=== PATIENT | female | born 1965 | race Caucasian/White ===

== ENCOUNTER 2017-06-09 08:58 | Emergency (ER) | payer OTHER ==
[2017-06-09] MEDS: DIAZEPAM 5 MG TAB PO (10:38)
[2017-06-09] MEDS: KETOROLAC 30 MG INJ IM (10:39)
== END 2017-06-09 11:48 | disposition home or self-care (01) ==
LOC: FTE 08:58
DX: M54.5 Low back pain (principal)
CPT/HCPCS: 96372; 99284-25

== ENCOUNTER 2017-11-13 16:28 | Emergency (ER) | payer OTHER ==
[2017-11-13] MEDS: IBUPROFEN 600 MG TAB PO (18:43)
[2017-11-13] MEDS: HYDROCODONE/APAP (5/325) TAB PO (18:43)
== END 2017-11-13 20:20 | disposition home or self-care (01) ==
LOC: FTE 16:28
DX: S80.212A Abrasion, left knee, initial encounter (principal); S90.811A Abrasion, right foot, initial encounter; I10 Essential (primary) hypertension; W17.89XA Other fall from one level to another, initial encounter; Y92.9 Unspecified place or not applicable
CPT/HCPCS: 72100; 73562; 73630; 99284-25

== ENCOUNTER 2018-03-15 11:01 | Emergency (ER) | payer OTHER | END 2018-03-15 12:50 | disposition home or self-care (01) | LOC: E/R 11:01 | DX: L30.9 Dermatitis, unspecified (principal); L01.00 Impetigo, unspecified; I10 Essential (primary) hypertension | CPT/HCPCS: 99283; Z7502 ==

== ENCOUNTER 2018-03-25 09:41 | Emergency (ER) | payer OTHER ==
[2018-03-25 11:41] LABS: OCCULT BLOOD STOOL NEGATIVE (NEGATIVE)
[2018-03-25 11:42] LABS: ADD MAN DIFF? NO
[2018-03-25 11:45] LABS: WHITE BLOOD COUNT 11.1 10^3/ul (4.8-10.8)
[2018-03-25 11:45] LABS: BASOPHIL # 0.1 10^3/ul (0.0-0.1); BASOPHILS % 0.6 % (0.0-2.0); EOSINOPHILS # 0.2 10^3/ul (0.0-0.5); EOSINOPHILS % 1.7 % (0.0-7.0); HEMOGLOBIN 13.7 g/dl (12.0-16.0); LYMPHOCYTES # 2.1 10^3/ul (0.8-2.9); LYMPHOCYTES % 18.9 % (15.0-51.0); MEAN CORPUSCULAR HEMOGLOBIN 28.8 pg (29.0-33.0); MEAN CORPUSCULAR HGB CONC 32.6 g/dl (32.0-37.0); MEAN CORPUSCULAR VOLUME 88.4 fl (82.0-101.0); MEAN PLATELET VOLUME 10.7 fl (7.4-10.4); MONOCYTES % 8.7 % (0.0-11.0); NEUTROPHIL # 7.7 10^3/ul (1.6-7.5); NEUTROPHILS % 69.6 % (39.0-77.0); PLATELET COUNT 329 10^3/UL (140-415); RED BLOOD COUNT 4.75 10^6/ul (4.20-5.40); RED CELL DISTRIBUTION WIDTH 13.4 % (11.5-14.5)
[2018-03-25 12:04] LABS: INR 0.97
[2018-03-25 12:05] LABS: PARTIAL THROMBOPLASTIN TIME 28.9 Sec (23.0-35.0)
[2018-03-25 12:08] LABS: ALANINE AMINOTRANSFERASE 25 IU/L (13-69); ALBUMIN 4.3 g/dl (3.3-4.9); ALBUMIN/GLOBULIN RATIO 1.22; ALKALINE PHOSPHATASE 94 IU/L (42-121); ANION GAP 8 (5-13); ASPARTATE AMINO TRANSFERASE 27 IU/L (15-46); BILIRUBIN,INDIRECT 0.4 mg/dl (0-1.1); BILIRUBIN,TOTAL 0.4 mg/dl (0.2-1.3); BLOOD UREA NITROGEN 14 mg/dl (7-20); CALCIUM 9.7 mg/dl (8.4-10.2); CARBON DIOXIDE 28 mmol/L (21-31); CHLORIDE 105 mmol/L (97-110); CREATININE 0.59 mg/dl (0.44-1.00); Estimated GFR > 60 mL/min (>60); GLUCOSE 89 mg/dl (70-220); LIPASE 282 U/L (23-300); POTASSIUM 3.9 mmol/L (3.5-5.1); SODIUM 141 mmol/L (135-144); TOTAL PROTEIN 7.8 g/dl (6.1-8.1)
[2018-03-25 12:38] LABS: ADD UMIC NO; UR ASCORBIC ACID NEGATIVE (NEGATIVE); UR BILIRUBIN (Dip) NEGATIVE (NEGATIVE); UR BLOOD (Dip) NEGATIVE (NEGATIVE); UR CLARITY CLEAR (CLEAR); UR COLOR YELLOW (YELLOW); UR GLUCOSE (Dip) NEGATIVE (NEGATIVE); UR KETONES (Dip) NEGATIVE (NEGATIVE); UR LEUKOCYTE ESTERASE (Dip) NEGATIVE Leu/ul (NEGATIVE); UR NITRITE (Dip) NEGATIVE (NEGATIVE); UR SPECIFIC GRAVITY (Dip) 1.025 (1.003-1.030); UR TOTAL PROTEIN (Dip) NEGATIVE (NEGATIVE); UR UROBILINOGEN (Dip) NEGATIVE (NEGATIVE)
== END 2018-03-25 13:57 | disposition home or self-care (01) ==
LOC: FTE 13:57
DX: R21 Rash and other nonspecific skin eruption (principal); R19.5 Other fecal abnormalities; I10 Essential (primary) hypertension
CPT/HCPCS: 80053; 81003; 82270; 83690; 85025; 85610; 85730; 99283-25

== ENCOUNTER 2018-04-27 16:26 | Emergency (ER) | payer SELFPAY, OTHER | END 2018-04-27 18:55 | disposition left against medical advice (07) | LOC: FTE 16:26 | DX: Z53.21 Procedure and treatment not carried out due to patient leaving prior to being seen by health care provider (principal) ==

== ENCOUNTER 2018-06-26 09:09 | Emergency (ER) | payer OTHER | END 2018-06-26 11:39 | disposition home or self-care (01) | LOC: FTE 09:09 | DX: M25.562 Pain in left knee (principal); M10.9 Gout, unspecified; I10 Essential (primary) hypertension | CPT/HCPCS: 99283; Z7502 ==

== ENCOUNTER 2018-07-17 21:16 | Emergency (ER) | payer SELFPAY, OTHER | END 2018-07-18 01:00 | disposition left against medical advice (07) | LOC: FTE 21:16 | DX: Z53.21 Procedure and treatment not carried out due to patient leaving prior to being seen by health care provider (principal) ==

== ENCOUNTER 2018-09-05 09:21 | Emergency (ER) | payer OTHER ==
[2018-09-05] MEDS: DIAZEPAM 5 MG TAB PO (10:09)
[2018-09-05] MEDS: KETOROLAC 60 MG INJ IM (10:16)
[2018-09-05] MEDS: DEXAMETHASONE 10 MG/ML 1 ML INJ IM (10:16)
== END 2018-09-05 10:36 | disposition home or self-care (01) ==
LOC: FTE 10:36
DX: M54.5 Low back pain (principal); I10 Essential (primary) hypertension
CPT/HCPCS: 81025; 96372; 99284-25

== ENCOUNTER 2018-10-30 01:48 | Emergency (ER) | payer OTHER ==
[2018-10-30 02:37] LABS: ADD MAN DIFF? NO
[2018-10-30 02:39] LABS: WHITE BLOOD COUNT 8.5 10^3/ul (4.8-10.8)
[2018-10-30 02:39] LABS: BASOPHIL # 0.1 10^3/ul (0.0-0.1); BASOPHILS % 0.9 % (0.0-2.0); EOSINOPHILS # 0.2 10^3/ul (0.0-0.5); EOSINOPHILS % 2.6 % (0.0-7.0); HEMATOCRIT 37.6 % (37.0-47.0); HEMOGLOBIN 12.4 g/dl (12.0-16.0); LYMPHOCYTES # 2.7 10^3/ul (0.8-2.9); LYMPHOCYTES % 31.8 % (15.0-51.0); MEAN CORPUSCULAR HEMOGLOBIN 28.9 pg (29.0-33.0); MEAN CORPUSCULAR VOLUME 87.6 fl (82.0-101.0); MEAN PLATELET VOLUME 11.1 fl (7.4-10.4); MONOCYTE # 0.8 10^3/ul (0.3-0.9); MONOCYTES % 9.5 % (0.0-11.0); NEUTROPHIL # 4.7 10^3/ul (1.6-7.5); PLATELET COUNT 262 10^3/UL (140-415); RED BLOOD COUNT 4.29 10^6/ul (4.20-5.40); RED CELL DISTRIBUTION WIDTH 13.3 % (11.5-14.5)
[2018-10-30 02:56] LABS: ALANINE AMINOTRANSFERASE 38 IU/L (13-69); ALBUMIN 4.3 g/dl (3.3-4.9); ALBUMIN/GLOBULIN RATIO 1.34; ALKALINE PHOSPHATASE 69 IU/L (42-121); ANION GAP 10 (5-13); ASPARTATE AMINO TRANSFERASE 31 IU/L (15-46); BILIRUBIN,INDIRECT 0.6 mg/dl (0-1.1); BILIRUBIN,TOTAL 0.6 mg/dl (0.2-1.3); BLOOD UREA NITROGEN 15 mg/dl (7-20); CALCIUM 9.5 mg/dl (8.4-10.2); CARBON DIOXIDE 27 mmol/L (21-31); CHLORIDE 108 mmol/L (97-110); CREATININE 0.84 mg/dl (0.44-1.00); Estimated GFR > 60 mL/min (>60); GLUCOSE 98 mg/dl (70-220); POTASSIUM 3.5 mmol/L (3.5-5.1); SODIUM 145 mmol/L (135-144); TOTAL PROTEIN 7.5 g/dl (6.1-8.1)
[2018-10-30 02:59] LABS: INR 1.04; PROTIME 13.7 Sec (11.9-14.9); PT RATIO 1.1
[2018-10-30] MEDS: ONDANSETRON 4 MG INJ IV (03:30)
[2018-10-30] MEDS: morphine 4 MG/ML VIAL IV (03:30)
[2018-10-30] MEDS: ACETAMINOPHEN 500 MG TAB PO (05:44)
== END 2018-10-30 09:39 | disposition home or self-care (01) ==
LOC: E/R 01:48
DX: M54.2 Cervicalgia (principal); I10 Essential (primary) hypertension; M54.5 Low back pain; Z85.42 Personal history of malignant neoplasm of other parts of uterus
CPT/HCPCS: 36415; 72142; 72147; 72149; 80053; 85025; 85610; 93005; 96374; 96375; 99285-25

== ENCOUNTER 2018-12-20 01:36 | Emergency (ER) | payer OTHER ==
[2018-12-20] MEDS: KETOROLAC 15 MG INJ IV (03:04)
[2018-12-20] MEDS: ONDANSETRON 4 MG INJ IV (03:04)
[2018-12-20] MEDS: SOD CHLORIDE 0.9% 1,000 ML IV (03:04)
[2018-12-20 03:19] LABS: ADD MAN DIFF? NO
[2018-12-20 03:35] LABS: WHITE BLOOD COUNT 7.8 10^3/ul (4.8-10.8)
[2018-12-20 03:35] LABS: BASOPHIL # 0.1 10^3/ul (0.0-0.1); BASOPHILS % 0.6 % (0.0-2.0); EOSINOPHILS # 0.2 10^3/ul (0.0-0.5); EOSINOPHILS % 2.4 % (0.0-7.0); HEMATOCRIT 42.6 % (37.0-47.0); LYMPHOCYTES # 2.6 10^3/ul (0.8-2.9); LYMPHOCYTES % 32.9 % (15.0-51.0); MEAN CORPUSCULAR HEMOGLOBIN 29.9 pg (29.0-33.0); MEAN CORPUSCULAR HGB CONC 32.9 g/dl (32.0-37.0); MEAN CORPUSCULAR VOLUME 90.8 fl (82.0-101.0); MEAN PLATELET VOLUME 11.3 fl (7.4-10.4); MONOCYTE # 0.7 10^3/ul (0.3-0.9); NEUTROPHIL # 4.3 10^3/ul (1.6-7.5); NEUTROPHILS % 54.7 % (39.0-77.0); PLATELET COUNT 314 10^3/UL (140-415); RED BLOOD COUNT 4.69 10^6/ul (4.20-5.40); RED CELL DISTRIBUTION WIDTH 12.9 % (11.5-14.5)
[2018-12-20 03:45] LABS: ALANINE AMINOTRANSFERASE 46 IU/L (13-69); ALBUMIN/GLOBULIN RATIO 1.21; ALKALINE PHOSPHATASE 107 IU/L (42-121); ANION GAP 8 (5-13); ASPARTATE AMINO TRANSFERASE 34 IU/L (15-46); BILIRUBIN,INDIRECT 0.4 mg/dl (0-1.1); BILIRUBIN,TOTAL 0.4 mg/dl (0.2-1.3); BLOOD UREA NITROGEN 26 mg/dl (7-20); CALCIUM 9.4 mg/dl (8.4-10.2); CARBON DIOXIDE 27 mmol/L (21-31); CHLORIDE 105 mmol/L (97-110); CREATININE 0.81 mg/dl (0.44-1.00); Estimated GFR > 60 mL/min (>60); GLUCOSE 126 mg/dl (70-220); LIPASE 240 U/L (23-300); POTASSIUM 3.5 mmol/L (3.5-5.1); SODIUM 140 mmol/L (135-144); TOTAL PROTEIN 7.3 g/dl (6.1-8.1)
[2018-12-20 03:57] LABS: TROPONIN-I < 0.012 ng/ml (0.000-0.120)
[2018-12-20 04:08] LABS: ADD UMIC YES; UR ASCORBIC ACID NEGATIVE (NEGATIVE); UR BACTERIA FEW /HPF (NONE SEEN); UR BILIRUBIN (Dip) NEGATIVE (NEGATIVE); UR BLOOD (Dip) NEGATIVE (NEGATIVE); UR CLARITY SLIGHTLY CLOUDY (CLEAR); UR COLOR YELLOW (YELLOW); UR GLUCOSE (Dip) NEGATIVE (NEGATIVE); UR KETONES (Dip) NEGATIVE (NEGATIVE); UR LEUKOCYTE ESTERASE (Dip) 2+ Leu/ul (NEGATIVE); UR NITRITE (Dip) NEGATIVE (NEGATIVE); UR RBC 2 /HPF (0-5); UR SQUAMOUS EPITHELIAL CELL MODERATE /HPF (FEW); UR TOTAL PROTEIN (Dip) NEGATIVE (NEGATIVE); UR UROBILINOGEN (Dip) NEGATIVE (NEGATIVE); UR WBC 6 /HPF (0-5)
[2018-12-20] MEDS: CEFTRIAXONE 1 GM/50 ML (PMX) 50 ML IVPB (04:18)
== END 2018-12-20 04:48 | disposition home or self-care (01) ==
LOC: E/R 01:36
DX: R42 Dizziness and giddiness (principal); I10 Essential (primary) hypertension; N39.0 Urinary tract infection, site not specified
CPT/HCPCS: 36415; 70450; 80053; 81001; 83690; 84484; 85025; 93005; 96374; 96375; 99285-25